=== PATIENT | male | born 1950 | race Caucasian/White ===

== ENCOUNTER 2025-01-31 09:56 | Emergency (ER) | payer OTHER, SELFPAY ==
[2025-01-31 10:06] VITALS: BP 148/72
--- NOTE | 2025-01-31 10:29 | ED.GENMED ---
History of Present Illness
General
Chief Complaint: Back Pain
Source: patient and spouse
Exam Limitations: none
Time Seen by Provider: 01/31/25 10:22
Nursing documentation reviewed up to this point in time: agreed with
History of Present Illness
History of Present Illness:
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 Patient
unfortunately has had number of similar symptoms the past, secondary to kidney stones. Denies vomiting. Denies trauma. Denies difficulty with urination. Denies recent illness. Denies recent change in medications or diet.
Past History
Past History
ED Past Medical History: Other (Kidney stones)
Social History
Tobacco: Non-smoker
Alcohol: None
Personal:
Review of Systems
Review of Systems
Allergies reviewed?: Yes
All Other Systems: ROS reviewed and negative except as documented in HPI and ROS
Constitutional: Reports no symptoms; Denies fever
ABD/GI: Reports nausea; Denies vomiting
: Reports flank pain
Musculoskeletal: Reports back pain
Skin: Reports no symptoms
Neurological: Reports no symptoms
Phy Exam
Physical Exam
Physical Exam:
Physical Exam
General: mild painful distress, not acutely ill. afebrile.
Head: nc/at. eomi
Neck: supple. normal range of motion.
Abdomen: normal bowel sounds. not tender.
Neuro: alert and oriented x 3. no focal neurological deficits
Skin: no rash
Psychiatric: well kept. interactive and cooperative
Extremities: no edema. no calf tenderness.
Course
Orders/Labs/Results
Orders:
Orders
01/31/25 10:28
CT Abd/pel Without Iv Or Oral Urgent
Comment:
Reason For Exam: right lower back/flank tenderness
Ketorolac [Toradol] 15 mg IV NOW STA
01/31/25 10:41
Basic Metabolic Panel Urgent
Complete Blood Count/With Diff Urgent
Urinalysis Reflex To Culture Urgent
Date Specimen was Collected: 01/31/25
Time Specimen was Collected: 10:39
Urine Microscopic Reflex Cult Urgent
Urine Culture Urgent
PETE Source: U
Specimen Description:
Obtained by: Random
Date Specimen was Collected: 01/31/25
Time Specimen was Collected: 10:39
Abnormal Lab Results
01/31/25
10:41
WBC 11.6 H 10^3/uL
(4.8-10.8)
RBC 4.62 L 10^6/uL
(4.70-6.10)
MCV 94.2 H fL
(80.0-94.0)
MCH 32.0 H pg
(27.0-31.0)
Absolute Neuts (auto) 10.3 H 10^3/uL
(1.4-6.5)
Absolute Lymphs (auto) 0.7 L 10^3/uL
(1.2-3.4)
Neutrophils % 88.6 H %
(42.2-75.2)
Lymphocytes % 5.7 L %
(20.5-51.1)
BUN 26 H mg/dl
(9-20)
Glucose 133 H mg/dl
(70-99)
Ur Occult Blood Reflex 4+ A
(Negative)
Leukocyte Esterase Rfl 1+ A
(Negative)
Urine RBC >100 A /HPF
(0-2)
Urine Bacteria (Reflex) Moderate A
(Negative)
Urine Albumin (Reflex) 3+ A
(Neg - Trace)
01/31/25 10:41
01/31/25 10:41
Vital Signs
Initial and Last Documented VS:
Initial Vital Signs
Temp Pulse Resp BP Pulse Ox
97.4 F 53 18 148/72 99
01/31/25 10:06 01/31/25 10:06 01/31/25 10:06 01/31/25 10:06 01/31/25 10:06
Last Documented Vital Signs
Temp Pulse Resp BP Pulse Ox
97.6 F 72 18 142/70 99
01/31/25 12:49 01/31/25 12:49 01/31/25 12:49 01/31/25 12:49 01/31/25 12:49
MDM/Problems Addressed
MDM/Problems Addressed:
CT report reviewed and discussed with patient and family. Patient given urine strainer at time of discharge, along with referral to urology for reevaluation. Advised return to ED with worsening symptoms, i.e. fever/worsening pain/inability
urinate. Patient expresses understanding at time of discharge, to the care of his family. Patient is without any pain at time of discharge.
*Critical Care Note
Total Time (30-74mins, 75-104mins- exclusive of procedures): Not Applicable
ED Attending Note
-
Portions of this chart may have been created with voice recognition software.� Occasional wrong word or��sound alike� substitutions may have occurred due to the inherent limitations of voice recognition software.
Discharge Plan
Departure
Patient Disposition: Home (Routine Discharge)
Patient with high blood pressure during this ER visit?: Yes
Discharge Problem:
Renal colic
Instructions: Kidney stones in adults
Prescriptions:
New
ketorolac 10 mg tablet
10 mg PO Q8H PRN (Reason: Pain) Qty: 14 0RF
Rx Instructions:
maximum total duration of 5 days from all oral, intranasal, or parenteral formulations
tamsulosin [Flomax] 0.4 mg Capsule
0.4 mg PO DAILY Qty: 7 0RF
ondansetron 4 mg Tablet,Disintegrating
4 mg PO TIDPRN PRN (Reason: nausea/vomiting) Qty: 12 0RF
No Action
aspirin 81 MG tablet,delayed release (DR/EC)
81 mg PO DAILY
atenolol 50 MG tablet
50 mg PO DAILY
meclizine 25 MG tablet
25 mg PO Q8HPRN PRN (Reason: nausea or vertigo) Qty: 20 0RF
oxycodone-acetaminophen 5 MG/325 MG tablet
1 tab PO Q6HPRN PRN (Reason: pain) Qty: 14 0RF
tamsulosin 0.4 MG capsule
0.4 mg PO DAILY Qty: 30 0RF
diclofenac potassium 50 MG tablet
50 mg PO BID Qty: 20 0RF
ondansetron 4 MG tablet,disintegrating
4 mg PO BIDPRN PRN (Reason: nausea) Qty: 14 0RF
oxycodone 5 mg capsule
5 mg PO Q6H PRN (Reason: Pain) Qty: 12 0RF
ondansetron 4 mg Tablet,Disintegrating
4 mg PO TIDPRN PRN (Reason: nausea/vomiting) Qty: 12 0RF
cephalexin 500 mg capsule
500 mg PO BID Qty: 10 0RF
Referrals:
Martínez Mirza MD [Family Provider] -
Activity Restrictions/Additional Instructions:
As discussed, please follow-up with your primary care physician and/or urologist for further evaluation and treatment. Please consider return to ED with worsening symptoms, i.e. fever/worsening pain/inability to urinate. Your prescriptions have
been sent electronically to [facility] in [place]
Interventions
Interventions:
*Risk Screen - Suicide Last Done: 01/31/25 10:06
*General Assessment Last Done: 01/31/25 10:06
*Neglect/Abuse Screening Last Done: 01/31/25 10:06
*ED- Fall Risk Assessment Last Done: 01/31/25 10:50
*ED COVID-19 Vaccine History Last Done: 01/31/25 10:50
*Nursing Disposition Last Done: 01/31/25 12:49
ED-Musculoskeletal Assessment Last Done: 01/31/25 10:49
Discharge Date and Time
Discharge Date/Time: 01/31/25 13:10
Print Language: UPPER SORBIAN
[2025-01-31] MEDS: TORADOL 15 MG IV (10:40)
[2025-01-31 10:56] LABS: % Basophils 0.3 % (0-2); % Eosinophils 0.4 % (0-6); % Immature Granulocytes 0.3 % (0-0.5); % Lymphocytes 5.7 % (20.5-51.1); % Monocytes 4.7 % (1.7-9.3); % Neutrophils 88.6 % (42.2-75.2); Absolute Eosinophils 0.1 10^3/uL (0-0.7); Absolute Lymphocytes 0.7 10^3/uL (1.2-3.4); Absolute Monocytes 0.5 10^3/uL (0.1-0.6); Absolute Neutrophils 10.3 10^3/uL (1.4-6.5); Hematocrit 43.5 % (39.0-52.0); Hemoglobin 14.8 g/dL (13.0-18.0); Mean Corpuscular Volume 94.2 fL (80.0-94.0); Mean Platelet Volume 9.9 fL (7.4-10.4); Nucleated Red Blood Cells % 0 % (-); Platelet Count 153 10^3/uL (130-400); Red Blood Cell Count 4.62 10^6/uL (4.70-6.10); Red Cell Dist. Width 11.9 % (11.5-14.5); White Blood Cell Count 11.6 10^3/uL (4.8-10.8)
[2025-01-31 11:07] LABS: Blood Urea Nitrogen 26 mg/dl (9-20); Calcium 9.4 mg/dl (8.4-10.2); Carbon Dioxide 28 mmol/L (22-30); Glucose 133 mg/dl (70-99); Potassium 4.6 mmol/L (3.5-5.1); Sodium 141 mmol/L (135-145); eGFR > 60.00
[2025-01-31 11:44] LABS: Chloride 106 mmol/L (98-107)
[2025-01-31 12:08] LABS: Urine Albumin 3+ (Neg - Trace); Urine Bilirubin Negative (Negative); Urine Character Cloudy (Clear); Urine Color Brown; Urine Glucose Negative (Negative); Urine Ketone Negative (Negative); Urine Leukocyte 1+ (Negative); Urine Nitrite Negative (Negative); Urine Occult Blood 4+ (Negative); Urine Urobilinogen 1+ (Neg - 1+)
[2025-01-31 12:13] LABS: Urine Red Blood Cell >100 /HPF (0-2); Urine Squamous Cell 0-2 /LPF (Few)
[2025-01-31 12:14] LABS: Urine Bacteria Moderate (Negative)
[2025-01-31 12:49] VITALS: BP 142/70
== END 2025-01-31 13:10 | disposition home or self-care (01) ==
LOC: EMR 09:56
PROVIDERS: EMERGENCY PHYSICIAN Emergency Medicine; FAMILY PHYSICIAN Internal Medicine
DX: N13.2 Hydronephrosis with renal and ureteral calculous obstruction (principal); Z86.73 Personal history of transient ischemic attack (TIA), and cerebral infarction without residual deficits; Z79.82 Long term (current) use of aspirin; Z79.02 Long term (current) use of antithrombotics/antiplatelets
CPT/HCPCS: 96374; 99284; 74176; 80048; 81003; 81015; 85025; 87086

== ENCOUNTER → 2025-06-21 09:11 | Outpatient (REF) | payer OTHER, SELFPAY | LOC: RAD 09:11 | PROVIDERS: ATTENDING PHYSICIAN Internal Medicine; REFERRING PHYSICIAN Internal Medicine Critical Care Medicine | DX: R91.1 Solitary pulmonary nodule (principal) | CPT/HCPCS: 71260; Q9967 ==